=== PATIENT | female | born 1985 | race African-American/Black ===

== ENCOUNTER 2018-12-27 09:38 | Emergency (ER) | payer OTHER ==
--- NOTE | 2018-12-27 10:33 | RAD REPORT ---
EXAM DESCRIPTION: RAD - Ankle Right 3 View - 12/27/2018 10:25 am CLINICAL HISTORY: fall injury;Pain COMPARISON: No comparisons FINDINGS: Prominent soft tissue swelling is seen about the ankle. No acute fracture or dislocation i s evident.
--- NOTE | 2018-12-27 10:40 | ER ---
Nurse's Notes [facility] Name: Jose Antonio Duff Age: 33 yrs Sex: Female : 1985 Arrival Date: 12/27/2018 Time: 09:43 Bed 17 Private MD: None, None Diagnosis: Sprain of ankle Presentation: 12/27 09:47 Presenting complaint: Patient states: i am working when i almost fell, but i caught hj myself, but twisted my R ankle; pain is 8/10; denies fall or heading head o LOC;. Transition of care: patient was not received from another setting of care. Onset of symptoms was December 27, 2018. Risk Assessment: Do you want to hurt yourself or someone else? Patient reports no desire to harm self or others. Initial Sepsis Screen: Does the patient meet any 2 criteria? No. Patient's initial sepsis screen is negative. Does the patient have a suspected source of infection? No. Patient's initial sepsis screen is negative. Care prior to arrival: None. 09:47 Method Of Arrival: Ambulatory 09:47 Acuity: HUNTER 4 hj Triage Assessment: 09:50 General: Appears in no apparent distress. uncomfortable, Behavior is calm, cooperative, hj appropriate for age. Pain: Complains of pain in R ankle. Musculoskeletal: Reports pain in R ankle. 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 - Social history:: Smoking status: Patient/guardian denies using tobacco, Patient uses alcohol. - Ebola Screening: : Patient negative for fever greater than or equal to 101.5 degrees Fahrenheit, and additional compatible Ebola Virus Disease symptoms Patient denies exposure to infectious person Patient denies travel to an Ebola-affected area in the 21 days before illness onset. Screenin:49 Abuse screen: Denies threats or abuse. Denies injuries from another. Nutritional hj screening: No deficits noted. Tuberculosis screening: No symptoms or risk factors identified. Fall Risk None identified. Assessment: 09:51 General: Appears in no apparent distress. uncomfortable, obese, Behavior is calm, hj cooperative, appropriate for age. Pain: Complains of pain in R ankle Pain currently is 8 out of 10 on a pain scale. Neuro: Level of Consciousness is awake, alert, obeys commands, Oriented to person, place, time, situation, Appropriate for age. Cardiovascular: Capillary refill < 3 seconds Patient's skin is warm and dry. Respiratory: Airway is patent Respiratory effort is even, unlabored, Respiratory pattern is regular, symmetrical. GI: No signs and/or symptoms were reported involving the gastrointestinal system. : No signs and/or symptoms were reported regarding the genitourinary system. EENT: No signs and/or symptoms were reported regarding the EENT system. Derm: No signs and/or symptoms reported regarding the dermatologic system. Musculoskeletal: Reports pain in R ankle. 10:41 Reassessment: called materials for medium size crutches; to follow up;. hj Vital Signs: 09:50 BP 156 / 90; Pulse 78; Resp 18; Temp 98.2(O); Pulse Ox 99% on R/A; Weight 133.81 kg; hj Height 5 ft. 5 in. (165.10 cm); Pain 8/10; 11:00 BP 166 / 99; Pulse 75; Resp 18; Pulse Ox 100% on R/A; hj 09:50 Body Mass Index 49.09 (133.81 kg, 165.10 cm) ED Course: 09:43 Patient arrived in ED. mr 09:43 None, None is Private Physician. mr 09:47 Darwin Troncoso, KELLY is Primary Nurse. hj 09:48 Theodore Shetty PA is PHCP. jr8 09:48 Nestor Tee MD is Attending Physician. jr8 09:48 Triage completed. hj 09:50 Arm band placed on left wrist. hj 09:50 Patient has correct armband on for positive identification. Bed in low position. Call hj light in reach. Side rails up X 1. 10:26 XRAY Ankle RIGHT 3 view In Process Unspecified. EDMS 10:39 Donovan Houser MD is Referral Physician. jr8 11:18 No provider procedures requiring assistance completed. Patient did not have IV access hj during this emergency room visit. intact. Administered Medications: No medications were administered Outcome: 10:39 Discharge ordered by MD. amado 11:18 Discharged to home with crutches. reynold 11:18 Condition: stable 11:18 Discharge instructions given to patient, Instructed on discharge instructions, follow up and referral plans. medication usage, crutch walking, Demonstrated understanding of instructions, follow-up care, medications, crutch walking, Prescriptions given X 1. 11:19 Patient left the ED. reynold Signatures: Dispatcher [employer] EDOR LandaverdeAlka mr Theodore Shetty PA PA jr8 Joaquin, Henry, RN RN reynold
--- NOTE | 2018-12-27 10:40 | EDPHYS ---
Physician Documentation [facility] Name: Jose Antonio Duff Age: 33 yrs Sex: Female : 1985 Arrival Date: 12/27/2018 Time: 09:43 Bed 17 Private MD: None, None ED Physician Nestor Tee HPI: 12/27 10:33 This 33 yrs old Black Female presents to ER via Ambulatory with complaints of Ankle jr8 Injury. 10:33 The patient presents with decreased range of motion, pain, swelling, tenderness. The jr8 complaints affect the right ankle. Onset: The symptoms/episode began/occurred acutely, today. Context: The problem was sustained at work, resulted from a mis-step by the patient. Associated signs and symptoms: The patient has no apparent associated signs or symptoms. Modifying factors: The symptoms are alleviated by nothing, the symptoms are aggravated by weight bearing, movement. Severity of symptoms: At their worst the symptoms were moderate, in the emergency department the symptoms are unchanged. The patient has not experienced similar symptoms in the past. The patient has not recently seen a physician. Patient stated that she was coming off of a truck bed and accidently stepped into a hole causing her to twist her ankle. Denies any other injury . 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 - Social history:: Smoking status: Patient/guardian denies using tobacco, Patient uses alcohol. - Ebola Screening: : Patient negative for fever greater than or equal to 101.5 degrees Fahrenheit, and additional compatible Ebola Virus Disease symptoms Patient denies exposure to infectious person Patient denies travel to an Ebola-affected area in the 21 days before illness onset. ROS: 10:33 Constitutional: Negative for fever, chills, and weight loss. jr8 10:33 MS/extremity: Positive for decreased range of motion, pain, swelling, tenderness, of the right ankle. 10:33 All other systems are negative. Exam: 10:33 Eyes: Pupils equal round and reactive to light, extra-ocular motions intact. Lids and jr8 lashes normal. Conjunctiva and sclera are non-icteric and not injected. Cornea within normal limits. Periorbital areas with no swelling, redness, or edema. ENT: Nares patent. No nasal discharge, no septal abnormalities noted. Tympanic membranes are normal and external auditory canals are clear. Oropharynx with no redness, swelling, or masses, exudates, or evidence of obstruction, uvula midline. Mucous membranes moist. Neck: Trachea midline, no thyromegaly or masses palpated, and no cervical lymphadenopathy. Supple, full range of motion without nuchal rigidity, or vertebral point tenderness. No Meningismus. Cardiovascular: Regular rate and rhythm with a normal S1 and S2. No gallops, murmurs, or rubs. Normal PMI, no JVD. No pulse deficits. Respiratory: Lungs have equal breath sounds bilaterally, clear to auscultation and percussion. No rales, rhonchi or wheezes noted. No increased work of breathing, no retractions or nasal flaring. Abdomen/GI: Soft, non-tender, with normal bowel sounds. No distension or tympany. No guarding or rebound. No evidence of tenderness throughout. Back: No spinal tenderness. No costovertebral tenderness. Full range of motion. Skin: Warm, dry with normal turgor. Normal color with no rashes, no lesions, and no evidence of cellulitis. Neuro: Awake and alert, GCS 15, oriented to person, place, time, and situation. Cranial nerves II-XII grossly intact. Motor strength 5/5 in all extremities. Sensory grossly intact. Cerebellar exam normal. Normal gait. 10:33 Musculoskeletal/extremity: Extremities: grossly normal except: noted in the right ankle: decreased ROM, pain, swelling, tenderness, ROM: full passive range of motion, limited active range of motion, limited active range of motion due to pain, limited passive range of motion due to pain, Circulation is intact in all extremities. Sensation intact. Vital Signs: 09:50 BP 156 / 90; Pulse 78; Resp 18; Temp 98.2(O); Pulse Ox 99% on R/A; Weight 133.81 kg; hj Height 5 ft. 5 in. (165.10 cm); Pain 8/10; 11:00 BP 166 / 99; Pulse 75; Resp 18; Pulse Ox 100% on R/A; hj 09:50 Body Mass Index 49.09 (133.81 kg, 165.10 cm) Procedures: 10:36 Splinting: Splint applied to right ankle using jaycob wrap, applied by tech. Examined by jr8 me, post splint application: neurovascular intact, 2+ distal pulses palpable, brisk capillary refill noted, Patient tolerated well. Crutch training provided to patient and/or family. Return demonstration given. MDM: 09:48 Patient medically screened. jr8 10:36 Data reviewed: vital signs, nurses notes, radiologic studies, plain films. Data jr8 interpreted: Pulse oximetry: on room air is 99 %. Interpretation: normal. Counseling: I had a detailed discussion with the patient and/or guardian regarding: the historical points, exam findings, and any diagnostic results supporting the discharge/admit diagnosis, radiology results, the need for outpatient follow up, a orthopedic surgeon, to return to the emergency department if symptoms worsen or persist or if there are any questions or concerns that arise at home. 12/27 10:03 Order name: XRAY Ankle RIGHT 3 view; Complete Time: 10:35 jr8 12/27 10:35 Order name: Jaycob wrap-joint; Complete Time: 10:36 jr8 12/27 10:35 Order name: Crutches; Complete Time: 11:15 jr8 Administered Medications: No medications were administered Disposition: 15:37 Co-signature as Attending Physician, Nestor Tee MD I agree with the assessment and [facility] plan of care. Disposition: 12/27/18 10:39 Discharged to Home. Impression: Sprain of ankle. - Condition is Stable. - Discharge Instructions: Ankle Sprain. - Prescriptions for Ibuprofen 800 mg Oral Tablet - take 1 tablet by ORAL route every 12 hours As needed take with food; 20 tablet. - Medication Reconciliation Form, Thank You Letter, Antibiotic Education, Prescription Opioid Use, Work release form form. - Follow up: Donovan Houser MD; When: 7 - 10 days; Reason: Recheck today's complaints, Continuance of care, Re-evaluation by your physician. - Problem is new. - Symptoms have improved. Signatures: Dispatcher [employer] Nestor Sosa MD MD cha Roszak, Josh, PA PA jr8 Darwin Troncoso RN RN Corrections: (The following items were deleted from the chart) 11:19 10:39 12/27/2018 10:39 Discharged to Home. Impression: Sprain of ankle. Condition is hj Stable. Forms are Medication Reconciliation Form, Thank You Letter, Antibiotic Education, Prescription Opioid Use. Follow up: Dr. Donovan Houser; When: 7 - 10 days; Reason: Recheck today's complaints, Continuance of care, Re-evaluation by your physician. Problem is new. Symptoms have improved. jr8
== END 2018-12-27 11:19 | disposition home or self-care (01) ==
LOC: ER 09:38
DX: S93.401A Sprain of unspecified ligament of right ankle, initial encounter (principal); X50.1XXA Overexertion from prolonged static or awkward postures, initial encounter; I10 Essential (primary) hypertension
CPT/HCPCS: 99283